=== PATIENT | female | born 2000 ===

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

== ENCOUNTER 2019-02-18 09:52 | Emergency (ER) | payer MEDICAID ==
[2019-02-18 09:52] VITALS: BMI 26.6
[2019-02-18 10:03] VITALS: BP 111/73; PULSE 90; RESP 20; TEMP 98.3; O2SAT 96
--- NOTE | 2019-02-18 10:16 | C.PDOC ---
History Of Present Illness Patient is a 18 year old female with no past medical history who presents with complaints of pain at her incision s/p (11/29/18). She states she has occasional sharp pains around the incision site since discharge from the hospital in November. She does not take anything for the pain. She states she had no post-op complications, infections, discharge, fevers. She also complains that she has a decreased feeling of the need to urinate and say she "has to physically go to the bathroom to see if she needs to urinate." This started right aftr the . She denies incontinence, pain/burning/bleeding with urination, says she has full sensation in the groin and incision site, and says she can feel when she is actually urinating and has a normal stream. She has normal BMs daily and denies constipations, blood in stool, and diarrhea. She has no been sexually active since delivering. She hsa no additional complaints and currently denies fevers, chills, abdominal pain, dysuria, hematuria, pyuria, constipaiton, diarrhea, n/v. 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 Negative for: Dysuria, Frequency, Incontinence, Hematuria, Pelvic Pain Skin: Negative for: Rash, Lesions Physical Exam - Physical Exam Appears: Well, Non-toxic, No Acute Distress Skin: Normal Color, Warm, Dry, No Rash, Other (well healed scar; no erythema, swelling, discharge) Head: No Atraumatic, No Normacephalic Lymphatic: No Adenopathy, No Inguinal Node Tenderness Gastrointestinal/Abdominal: Normal Exam, Soft, No Tenderness, No Distention, No Guarding, Other (mild tenderness of the scar) ED Course And Treatment O2 Sat by Pulse Oximetry: 96 Medical Decision Making Medical Decision Making: Patient is in no acute distress and presents with a chronic complaint that has no worsened since November. Patients vitals are within normal range, afebrile. Patient is stable and clear for discharge and instructed to establish care with a primary doctor and grappler. Disposition - Disposition Referrals: Dacia Lorenz MD [Medical Doctor] - [facility] [Outside] Disposition: HOME/ ROUTINE Disposition Time: 10:12 Condition: STABLE Additional Instructions: Please follow up in the [facility] or OB Clinic in [facility]. If symptoms worsen or you develop signs/symptoms of infection (fever, swelling, discharge) please return to the nearest ER. Instructions: Postoperative Pain (DC) Forms: General Discharge Instructions, [facility] (Armenian) - Clinical Impression Clinical Impression: Post-op pain
== END 2019-02-18 10:35 | disposition home or self-care (01) ==
LOC: C.ER 09:52
DX: G89.18 Other acute postprocedural pain (principal)